=== PATIENT | female | born 1950 | race Caucasian/White ===

== ENCOUNTER → 2024-11-11 07:15 | Outpatient (REF) | payer MEDICARE, SELFPAY ==
[2024-11-11] MEDS: LEXISCAN 0.4 MG IV (10:10)
[2024-11-11] MEDS: AMINOPHYLLINE 75 MG IV (10:23)
== END ==
LOC: RCS 07:15
PROVIDERS: ATTENDING PHYSICIAN Student in an Organized Health Care Education/Training Program; FAMILY PHYSICIAN Family Medicine
DX: E78.5 Hyperlipidemia, unspecified (principal); R07.9 Chest pain, unspecified
CPT/HCPCS: 78452; 93017; A9500; J2785

== ENCOUNTER → 2024-11-13 12:47 | Outpatient (REF) | payer MEDICARE, SELFPAY | LOC: HWRCS 12:47 | PROVIDERS: ATTENDING PHYSICIAN Student in an Organized Health Care Education/Training Program; FAMILY PHYSICIAN Family Medicine | DX: E78.5 Hyperlipidemia, unspecified (principal) | CPT/HCPCS: 93306 ==

== ENCOUNTER → 2024-11-15 08:13 | Outpatient (REF) | payer MEDICARE, SELFPAY | LOC: HWRAD 08:13 | PROVIDERS: ATTENDING PHYSICIAN Student in an Organized Health Care Education/Training Program; FAMILY PHYSICIAN Family Medicine; REFERRING PHYSICIAN Family Medicine | DX: E78.5 Hyperlipidemia, unspecified (principal); I65.29 Occlusion and stenosis of unspecified carotid artery; R55 Syncope and collapse | CPT/HCPCS: 93880 ==